=== PATIENT | female | born 1955 | race Caucasian/White ===

== ENCOUNTER → 2016-09-03 | Outpatient (CLI) | payer BC ==
[~2016-09-03] MED LIST: CLONAZEPAM 0.50.5 M1 PO; HYDROCODONE-AP1 EAC6 PO; KLOR-CON 1010 MEQ PO; LEVOTHYROXIN0.025 MG PO; MIRAPEX 0.250.25 M1 PO; MOBIC15 MG PO; RESTASIS1 EACH OPHTHALMIC; SEROQUEL 25 MG25 M1 PO; WELLBUTRIN 100100 MG PO; [UNRECOGNIZED DRUG - OTHER]; [UNRECOGNIZED DRUG - OTHER]; [UNRECOGNIZED DRUG - OTHER]
[2016-09-03 16:08] LABS: HEMATOCRIT 38.9 % (37.0-47.0); MCHC 33.3 g/dL (28.0-37.0); MCV 90.2 fL (80.0-100.0); RBC 4.32 mil/uL (4.20-5.00); WBC 10.2 thou/uL (4.0-11.0)
[2016-09-03 16:36] LABS: ALBUMIN 3.3 g/dL (3.4-5.0); CALCIUM 8.7 mg/dL (8.5-10.1); POTASSIUM 4.2 mmol/L (3.5-5.1); TOTAL BILIRUBIN 0.3 mg/dL (<0.1-1.0)
[2016-09-03 17:56] VITALS: BP 127/62
== END ==
LOC: OPONC 14:26
PROVIDERS: Specialist
DX: A49.01 Methicillin susceptible Staphylococcus aureus infection, unspecified site (principal); L97.521 Non-pressure chronic ulcer of other part of left foot limited to breakdown of skin
CPT/HCPCS: 27001; 95113

== ENCOUNTER → 2016-09-20 | Outpatient (CLI) | payer BC | LOC: HYPER | DX: E11.621 Type 2 diabetes mellitus with foot ulcer (principal); L97.522 Non-pressure chronic ulcer of other part of left foot with fat layer exposed; E66.09 Other obesity due to excess calories; E11.21 Type 2 diabetes mellitus with diabetic nephropathy; J45.22 Mild intermittent asthma with status asthmaticus; E03.9 Hypothyroidism, unspecified; M19.90 Unspecified osteoarthritis, unspecified site; K21.9 Gastro-esophageal reflux disease without esophagitis; F06.31 Mood disorder due to known physiological condition with depressive features; Z87.891 Personal history of nicotine dependence; Z72.89 Other problems related to lifestyle; Z68.37 Body mass index [BMI] 37.0-37.9, adult ==

== ENCOUNTER → 2016-09-30 | Outpatient (CLI) | payer BC | LOC: HYPER 07:20 | DX: E11.622 Type 2 diabetes mellitus with other skin ulcer (principal); L97.522 Non-pressure chronic ulcer of other part of left foot with fat layer exposed; E11.21 Type 2 diabetes mellitus with diabetic nephropathy; E66.09 Other obesity due to excess calories; Z68.37 Body mass index [BMI] 37.0-37.9, adult; J45.22 Mild intermittent asthma with status asthmaticus; E03.9 Hypothyroidism, unspecified; G25.81 Restless legs syndrome; F06.31 Mood disorder due to known physiological condition with depressive features; M19.90 Unspecified osteoarthritis, unspecified site; K21.9 Gastro-esophageal reflux disease without esophagitis; Z87.891 Personal history of nicotine dependence; Z72.89 Other problems related to lifestyle ==

== ENCOUNTER → 2016-10-05 | Outpatient (CLI) | payer BC ==
[2016-10-05 14:14] LABS: HEMATOCRIT 36.4 % (37.0-47.0); MCH 29.4 pg (26.0-34.0); MCHC 32.9 g/dL (28.0-37.0); MCV 89.5 fL (80.0-100.0); RBC 4.07 mil/uL (4.20-5.00); RDW 14.5 % (10.5-14.5); WBC 7.1 thou/uL (4.0-11.0)
[2016-10-05 14:25] LABS: CREATININE 1.3 mg/dL (0.6-1.0); POTASSIUM 4.1 mmol/L (3.5-5.1)
[2016-10-05 14:30] LABS: ALBUMIN 3.2 g/dL (3.4-5.0); TOTAL BILIRUBIN 0.2 mg/dL (<0.1-1.0); TOTAL PROTEIN 6.9 g/dL (6.4-8.2)
== END ==
LOC: OPONC 11:38
PROVIDERS: Specialist
DX: L97.521 Non-pressure chronic ulcer of other part of left foot limited to breakdown of skin (principal); E11.69 Type 2 diabetes mellitus with other specified complication; A49.01 Methicillin susceptible Staphylococcus aureus infection, unspecified site
CPT/HCPCS: 91016

== ENCOUNTER → 2016-10-07 | Outpatient (CLI) | payer BC | LOC: HYPER 07:12 | DX: E11.621 Type 2 diabetes mellitus with foot ulcer (principal); L97.522 Non-pressure chronic ulcer of other part of left foot with fat layer exposed; E66.09 Other obesity due to excess calories; E11.21 Type 2 diabetes mellitus with diabetic nephropathy; J45.22 Mild intermittent asthma with status asthmaticus; E03.9 Hypothyroidism, unspecified; M19.90 Unspecified osteoarthritis, unspecified site; K21.9 Gastro-esophageal reflux disease without esophagitis; F06.31 Mood disorder due to known physiological condition with depressive features; Z87.891 Personal history of nicotine dependence; Z72.89 Other problems related to lifestyle; Z68.37 Body mass index [BMI] 37.0-37.9, adult ==

== ENCOUNTER → 2016-10-09 | Outpatient (CLI) | payer BC | LOC: OPONC 12:09 | DX: Z45.2 Encounter for adjustment and management of vascular access device (principal) ==

== ENCOUNTER → 2016-10-14 | Outpatient (CLI) | payer BC | LOC: HYPER 06:59 | DX: E11.621 Type 2 diabetes mellitus with foot ulcer (principal); L97.522 Non-pressure chronic ulcer of other part of left foot with fat layer exposed; E66.09 Other obesity due to excess calories; E11.21 Type 2 diabetes mellitus with diabetic nephropathy; J45.22 Mild intermittent asthma with status asthmaticus; E03.9 Hypothyroidism, unspecified; J45.909 Unspecified asthma, uncomplicated; M19.90 Unspecified osteoarthritis, unspecified site; K21.9 Gastro-esophageal reflux disease without esophagitis; F06.31 Mood disorder due to known physiological condition with depressive features; Z87.891 Personal history of nicotine dependence; Z72.89 Other problems related to lifestyle; Z68.37 Body mass index [BMI] 37.0-37.9, adult ==

== ENCOUNTER → 2016-11-01 | Outpatient (CLI) | payer BC | LOC: HYPER 10-21 09:26 | DX: E11.621 Type 2 diabetes mellitus with foot ulcer (principal); L97.522 Non-pressure chronic ulcer of other part of left foot with fat layer exposed; E66.09 Other obesity due to excess calories; E11.21 Type 2 diabetes mellitus with diabetic nephropathy; J45.22 Mild intermittent asthma with status asthmaticus; E03.9 Hypothyroidism, unspecified; G25.81 Restless legs syndrome; M19.90 Unspecified osteoarthritis, unspecified site; K21.9 Gastro-esophageal reflux disease without esophagitis; F32.9 Major depressive disorder, single episode, unspecified; F06.31 Mood disorder due to known physiological condition with depressive features; Z87.891 Personal history of nicotine dependence; Z72.89 Other problems related to lifestyle; Z68.37 Body mass index [BMI] 37.0-37.9, adult ==

== ENCOUNTER → 2016-11-18 | Outpatient (CLI) | payer BC | LOC: HYPER 07:11 | DX: E11.621 Type 2 diabetes mellitus with foot ulcer (principal); L97.522 Non-pressure chronic ulcer of other part of left foot with fat layer exposed; E66.09 Other obesity due to excess calories; F06.31 Mood disorder due to known physiological condition with depressive features; J45.22 Mild intermittent asthma with status asthmaticus; E03.9 Hypothyroidism, unspecified; G25.81 Restless legs syndrome; E11.21 Type 2 diabetes mellitus with diabetic nephropathy; M19.90 Unspecified osteoarthritis, unspecified site; K21.9 Gastro-esophageal reflux disease without esophagitis; Z87.891 Personal history of nicotine dependence; Z68.37 Body mass index [BMI] 37.0-37.9, adult; Z72.89 Other problems related to lifestyle ==

== ENCOUNTER → 2016-12-01 | Outpatient (CLI) | payer BC | LOC: HYPER 06:51 | DX: E11.621 Type 2 diabetes mellitus with foot ulcer (principal); L97.522 Non-pressure chronic ulcer of other part of left foot with fat layer exposed; E66.09 Other obesity due to excess calories; E11.21 Type 2 diabetes mellitus with diabetic nephropathy; J45.22 Mild intermittent asthma with status asthmaticus; E03.9 Hypothyroidism, unspecified; M19.90 Unspecified osteoarthritis, unspecified site; K21.9 Gastro-esophageal reflux disease without esophagitis; F06.31 Mood disorder due to known physiological condition with depressive features; Z87.891 Personal history of nicotine dependence; Z68.37 Body mass index [BMI] 37.0-37.9, adult; Z72.89 Other problems related to lifestyle ==

== ENCOUNTER → 2016-12-17 | Outpatient (CLI) | payer BC | LOC: HYPER 08:14 | DX: L97.522 Non-pressure chronic ulcer of other part of left foot with fat layer exposed (principal); E11.21 Type 2 diabetes mellitus with diabetic nephropathy; J45.22 Mild intermittent asthma with status asthmaticus; E03.9 Hypothyroidism, unspecified; E66.09 Other obesity due to excess calories; M19.90 Unspecified osteoarthritis, unspecified site; K21.9 Gastro-esophageal reflux disease without esophagitis; F06.31 Mood disorder due to known physiological condition with depressive features; Z87.891 Personal history of nicotine dependence; Z68.37 Body mass index [BMI] 37.0-37.9, adult; Z72.89 Other problems related to lifestyle ==

== ENCOUNTER → 2017-01-14 | Outpatient (CLI) | payer BC | LOC: HYPER 08:03 | DX: E11.621 Type 2 diabetes mellitus with foot ulcer (principal); L97.522 Non-pressure chronic ulcer of other part of left foot with fat layer exposed; E66.09 Other obesity due to excess calories; E11.21 Type 2 diabetes mellitus with diabetic nephropathy; J45.22 Mild intermittent asthma with status asthmaticus; E03.9 Hypothyroidism, unspecified; M19.90 Unspecified osteoarthritis, unspecified site; K21.9 Gastro-esophageal reflux disease without esophagitis; F06.31 Mood disorder due to known physiological condition with depressive features; Z87.891 Personal history of nicotine dependence; Z72.89 Other problems related to lifestyle; Z68.37 Body mass index [BMI] 37.0-37.9, adult ==

== ENCOUNTER 2017-02-01 07:08 | Inpatient (IN) | payer BC ==
[~2017-02-01] VITALS: Ht 172.7 cm; Wt 122.2 kg
--- NOTE | ~2017-02-01 | HC ---
[facility] [place] [address] CONSULTATION Name: TA SALDANA Room #: 431-P ADM IN M.R.#: [id number] Admission: 02/01/17 Attend Phys: Antonio Mccann MD Discharge: Date of : 57 Report #: [id number] THIS REPORT FOR: //name// CC: WU Mccann DATE OF SERVICE: 02/03/2017 WOUND CARE PROGRESS NOTE PERSONAL PHYSICIAN: None on staff. CHIEF COMPLAINT: Left leg cellulitis. HISTORY OF PRESENT ILLNESS: This is a 61-year-old white female who I saw in clinic 2 days ago and admitted to the hospital for cellulitis of the left lower extremity, status post operative removal of hardware approximately 10 days ago. The patient now is on 48 hours of IV antibiotics and has been doing quite well. The patient states her foot feels much better and she herself feels better as well. The patient states her swelling has gone down markedly because she has been keeping her legs elevated. Nursing staff have no major concerns at this time. CURRENT MEDICATIONS: Reviewed. They do include IV antibiotics. DRUG ALLERGIES: Multiple. I have reviewed patient's list. REVIEW OF SYSTEMS: CONSTITUTIONAL: The patient denies fevers or chills. NEUROLOGIC: The patient complains of generalized weakness, but no isolated weakness to arms or legs. GASTROINTESTINAL: The patient denies nausea, vomiting or diarrhea. CARDIAC: The patient also denies chest pain or shortness of breath. EXTREMITIES: The patient does complain of mild swelling in her lower extremities; however, this is much improved. PHYSICAL EXAMINATION: VITAL SIGNS: Stable. The patient is afebrile. GENERAL: This is an alert and oriented times 3, very pleasant white female who is in no acute distress. HEENT: Normocephalic and atraumatic. Mucous membranes are somewhat dry. Pupils are round. Sclerae white. LUNGS: Show nonlabored respirations. ABDOMEN: Soft, obese and otherwise nontender. EXTREMITIES: Evaluation of left lower extremity reveals markedly diminished swelling approximately 1+. There is decreased erythema and warmth to the left [facility] [address] [place] [address] CONSULTATION Name: TA SALDANA Room #: 431-P ADM IN M.R.#: [id number] Admission: 02/01/17 Attend Phys: Antonio Mccann MD Discharge: Date of : 57 Report #: [id number] lower extremity. The bilateral foot wounds have been just freshly dressed and clean, dry and intact. I reviewed the patient's pictures, which showed intact sutures, but from the previous surgery, with markedly diminished erythema. NEUROLOGIC: Cranial nerves 2-12 are grossly intact. Motor and sensory are grossly intact. DIAGNOSTIC DATA: X-rays results: MRI was reviewed, which showed Charcot arthropathy changes, but no acute osteomyelitis or abscess. WOUND CARE COURSE: I spoke at length with the patient. I stated at this point in time we will continue the IV antibiotics per infectious disease recommendations, and then plan on getting the patient either home with home health or possibly even to a skilled facility for a short term of rehabilitation for strengthening. She is agreeable to either one. IMPRESSION: 1. Left lower extremity cellulitis, status post left foot surgical procedure. 2. Status post right foot surgical explantation of hardware. 3. Generalized debility. PLAN: At this time once again we will continue with the IV antibiotics, local wound care with Optifoam Ag covering the incisional sites covered with Kerlix and Mir wrap. The patient to elevate her legs as much as possible. Continue to maximize protein supplementation for healing. Once again, patient is considering skilled facility for rehabilitation upon discharge. We will continue to follow the patient. By: 21 0427 Antonio Mccann MD /nt
--- NOTE | ~2017-02-01 | HC ---
[facility] [place] [address] [place] [address] CONSULTATION Name: TA SALDANA Room #: 431-P ADM IN M.R.#: [id number] Admission: 02/01/17 Attend Phys: Antonio Mccann MD Discharge: Date of : 57 Report #: [id number] THIS REPORT FOR: //name// CC: WU Mccann DATE OF SERVICE: 02/02/2017 CHIEF COMPLAINT: Foot infection. HISTORY OF PRESENT ILLNESS: This is a 61-year-old female patient with history of diabetes and peripheral neuropathy, has a history of methicillin-susceptible Staph aureus. She had a prominence of the bone on the lateral part of her foot and has undergone surgical intervention to remove the bony prominence. She also had previous hardware removed from her first metatarsal reconstructive surgeries. She developed pain, swelling and redness and has been admitted for further evaluation and treatment. PAST MEDICAL HISTORY: Positive for history of diabetes mellitus, currently not requiring medication; peripheral neuropathy; history of Staph infection as well as ongoing peripheral edema. ALLERGIES: INCLUDE ADHESIVE AND OXYCODONE. CURRENT MEDICATIONS: Include Synthroid, clonazepam, Seroquel, Wellbutrin, Mobic, Mirapex. SOCIAL HISTORY: Previous smoker, negative for current alcohol use. REVIEW OF SYSTEMS: CONSTITUTIONAL: Denies fever, chills, weight loss. NEUROLOGICAL: The patient denies focal weakness. ENT: The patient denies earache, nasal drainage, sore throat. CARDIOVASCULAR: The patient denies chest pain, palpitations, diaphoresis. PULMONARY: The patient denies cough or shortness of breath. GASTROINTESTINAL: The patient denies nausea, vomiting, diarrhea or abdominal pain. ORTHOPEDIC: The patient has pain, but does complain of some swelling and redness to her left foot. ENDOCRINE: The patient denies heat or cold intolerance, polydipsia, polyphagia and polyuria. Other systems in a 12-point review of systems are negative. PHYSICAL EXAMINATION: VITAL SIGNS: Include pulse 73, respiratory rate 18, blood pressure 135/88, temperature 98.4. GENERAL: This is a chronically ill-appearing female patient who appears to be [address] [address] CONSULTATION Name: TA SALDANA Room #: 431-P ADM IN M.R.#: [id number] Admission: 02/01/17 Attend Phys: Antonio Mccann MD Discharge: Date of : 57 Report #: [id number] in no distress. HEENT: Head is normocephalic. Nose and throat are clear. NECK: Supple. LUNGS: Clear. HEART: Regular. ABDOMEN: Soft. Bowel sounds present. EXTREMITIES: Examination of the left foot demonstrates surgical incisions both along the lateral portion of the foot as well as the dorsal aspect of the first ray. There is mild erythema present. There is some bruising on the lateral portion of the left foot as well. LABORATORY DATA: Include sodium 138, potassium 3.7, chloride 101, CO2 33, BUN 26, creatinine 1.4, glucose 116, alk phos 90. White blood cell count 8.3; hemoglobin 11.3; platelet count 226,000. Sed rate moderately elevated at 70. CLINICAL IMPRESSION: 1. Surgical site infection of the left foot. 2. Diabetes mellitus. 3. Peripheral edema. RECOMMENDATIONS: At this point in time, the patient is started on intravenous antibiotic therapy. We will recommend dry dressings to the incision lines with silver alginate and gauze. We will check an MRI. We will review the findings and condition with Dr. Mccann who has been following her on an outpatient basis. I appreciate being asked to see her in consultation. <ELECTRONICALLY SIGNED> By: Michael De Santiago MD 02/03/17 1350 [id number] Michael De Santiago MD /nt
[~2017-02-01 07:08] MED LIST changes: +ALPRAZOLAM PO; -HYDROCODONE-AP1 EAC6 PO; +HYDROCODONE-AP1 EACH PO; -LEVOTHYROXIN0.025 MG PO; +SYNTHROID137 MCG PO; -[UNRECOGNIZED DRUG - OTHER]; -[UNRECOGNIZED DRUG - OTHER]; +[UNRECOGNIZED DRUG - OTHER] PO
[2017-02-01 17:15] VITALS: BP 154/82
[2017-02-01 18:40] LABS: ABSOLUTE NEUTROPHILS 5.3 thou/uL (1.4-8.2); BASOPHILS 0.9 % (0.0-2.0); EOSINOPHILS 2.7 % (0.0-3.0); HEMATOCRIT 33.8 % (37.0-47.0); HEMOGLOBIN 11.3 gm/dL (12.0-15.0); LYMPHOCYTES 21.1 % (24.0-44.0); MCH 29.2 pg (26.0-34.0); MCHC 33.4 g/dL (28.0-37.0); MCV 87.3 fL (80.0-100.0); MONOCYTES 10.7 % (1.0-8.0); PLATELET COUNT 226 thou/uL (150-400); POLYS 64.6 % (36.0-66.0); RBC 3.87 mil/uL (4.20-5.00); RDW 15.1 % (10.5-14.5); WBC 8.3 thou/uL (4.0-11.0)
[2017-02-01 18:41] LABS: MANUAL DIFF NO
[2017-02-01 18:48] LABS: CALCIUM 9.5 mg/dL (8.5-10.1); CREATININE 1.4 mg/dL (0.6-1.0); POTASSIUM 3.7 mmol/L (3.5-5.1)
[2017-02-01 18:55] LABS: ALBUMIN 3.2 g/dL (3.4-5.0); TOTAL BILIRUBIN 0.4 mg/dL (<0.1-1.0); TOTAL PROTEIN 7.1 g/dL (6.4-8.2)
[2017-02-01 20:00] VITALS: BP 119/58
[2017-02-01 23:10] LABS: URINE BILIRUBIN NEGATIVE (Negative); URINE BLOOD NEGATIVE (Negative); URINE COLOR YELLOW; URINE GLUCOSE-RANDOM* NEGATIVE (Negative); URINE KETONES NEGATIVE (Negative); URINE NITRITE NEGATIVE (Negative); URINE PROTEIN (DIPSTICK) NEGATIVE (Negative); URINE SPECIFIC GRAVITY <= 1.005 (1.003-1.035)
[2017-02-02 04:30] VITALS: BP 120/68; BP 146/95
[2017-02-02] MEDS ORDERED: SEROQUEL 50 MG50 MG PO (14:28)
[2017-02-02] MEDS ORDERED: SINGULAIR 10 MG10 M1 PO (14:30)
[2017-02-02] MEDS ORDERED: MIRAPEX 0.250.25 M1 PO (14:30)
[2017-02-02] MEDS ORDERED: LASIX 80 MG TAB80 MG PO (14:31)
[2017-02-02] MEDS ORDERED: PROZAC20 MG PO (14:32)
[2017-02-02] MEDS ORDERED: NEURONTIN600 MG PO (14:33)
[2017-02-02] MEDS ORDERED: CYCLOBENZAPRINE5 MG PO (14:35)
[2017-02-02] MEDS ORDERED: ARIPIPRAZOLE10 MG PO (14:37)
[2017-02-02 15:18] VITALS: BP 105/51
[2017-02-02 20:18] VITALS: BP 135/88
[2017-02-03 03:36] VITALS: BP 95/50
[2017-02-03 06:57] VITALS: BP 112/61
[2017-02-03 07:20] LABS: ABSOLUTE NEUTROPHILS 3.3 thou/uL (1.4-8.2); EOSINOPHILS 4.5 % (0.0-3.0); HEMATOCRIT 29.9 % (37.0-47.0); HEMOGLOBIN 10.1 gm/dL (12.0-15.0); MCH 29.5 pg (26.0-34.0); MCHC 33.6 g/dL (28.0-37.0); MCV 87.7 fL (80.0-100.0); MONOCYTES 8.6 % (1.0-8.0); PLATELET COUNT 203 thou/uL (150-400); POLYS 54.9 % (36.0-66.0); RBC 3.41 mil/uL (4.20-5.00); RDW 15.3 % (10.5-14.5)
[2017-02-03 07:21] LABS: MANUAL DIFF NO
[2017-02-03 07:43] LABS: CALCIUM 8.8 mg/dL (8.5-10.1)
[2017-02-03 16:00] VITALS: BP 102/55
[2017-02-03 20:27] VITALS: BP 140/78
[2017-02-03 20:38] VITALS: BP 116/75
[2017-02-04 07:52] VITALS: BP 133/71
[2017-02-04 15:11] VITALS: BP 133/71
[2017-02-04 17:00] VITALS: BP 117/66
[2017-02-04 19:21] VITALS: BP 129/71
[2017-02-05] VITALS: BP 116/63
[2017-02-05 03:47] VITALS: BP 87/50
[2017-02-05 06:01] LABS: ABSOLUTE NEUTROPHILS 4.3 thou/uL (1.4-8.2); BASOPHILS 1.2 % (0.0-2.0); EOSINOPHILS 3.5 % (0.0-3.0); HEMOGLOBIN 10.2 gm/dL (12.0-15.0); LYMPHOCYTES 28.9 % (24.0-44.0); MCHC 32.9 g/dL (28.0-37.0); PLATELET COUNT 211 thou/uL (150-400); POLYS 58.4 % (36.0-66.0); RBC 3.52 mil/uL (4.20-5.00); RDW 14.3 % (10.5-14.5); WBC 7.4 thou/uL (4.0-11.0)
[2017-02-05 06:02] LABS: MANUAL DIFF NO
[2017-02-05 06:09] LABS: CALCIUM 8.8 mg/dL (8.5-10.1); CREATININE 0.9 mg/dL (0.6-1.0); POTASSIUM 4.4 mmol/L (3.5-5.1)
[2017-02-05 08:05] VITALS: BP 130/54
[2017-02-05] MEDS ORDERED: HOSPITAL BED (11:28)
[2017-02-05] MEDS ORDERED: TAMIFLU75 MG PO (11:28)
[2017-02-05 15:00] VITALS: BP 133/71
== END 2017-02-05 15:36 | disposition home or self-care (01) | DRG 863 ==
LOC: HYPER 07:08 → 4E 17:05
PROVIDERS: Family Medicine; Nurse Practitioner
DX: T81.4XXA Infection following a procedure, initial encounter (principal); L03.116 Cellulitis of left lower limb; Y83.8 Other surgical procedures as the cause of abnormal reaction of the patient, or of later complication, without mention of misadventure at the time of the procedure; E11.42 Type 2 diabetes mellitus with diabetic polyneuropathy; K21.9 Gastro-esophageal reflux disease without esophagitis; E03.9 Hypothyroidism, unspecified; M19.90 Unspecified osteoarthritis, unspecified site; Y92.89 Other specified places as the place of occurrence of the external cause; Z79.899 Other long term (current) drug therapy; Z87.891 Personal history of nicotine dependence; Z98.84 Bariatric surgery status; Z88.8 Allergy status to other drugs, medicaments and biological substances; Z82.49 Family history of ischemic heart disease and other diseases of the circulatory system; Z83.3 Family history of diabetes mellitus
CPT/HCPCS: 10783

== ENCOUNTER → 2017-02-22 | Outpatient (CLI) | payer BC ==
[~2017-02-22] MED LIST changes: +ARIPIPRAZOLE10 MG PO; +CYCLOBENZAPRINE5 MG PO; +GRALISE600 MG PO; +HOSPITAL BED; +LASIX 40 MG TAB40 M2 PO; +LASIX 80 MG TAB80 MG PO; +NEURONTIN600 MG PO; +PRILOSEC 20 MG20 MG PO; +PROZAC20 MG PO; +SEROQUEL 50 MG50 MG PO; +SINGULAIR 10 MG10 M1 PO; +TAMIFLU75 MG PO; +XANAX1 MG PO
== END ==
LOC: HYPER 06:47
DX: T81.31XD Disruption of external operation (surgical) wound, not elsewhere classified, subsequent encounter (principal); E11.621 Type 2 diabetes mellitus with foot ulcer; L97.522 Non-pressure chronic ulcer of other part of left foot with fat layer exposed; E66.09 Other obesity due to excess calories; E11.21 Type 2 diabetes mellitus with diabetic nephropathy; F06.31 Mood disorder due to known physiological condition with depressive features; J45.22 Mild intermittent asthma with status asthmaticus; E03.9 Hypothyroidism, unspecified; K21.9 Gastro-esophageal reflux disease without esophagitis; M19.90 Unspecified osteoarthritis, unspecified site; Z87.891 Personal history of nicotine dependence; Z72.89 Other problems related to lifestyle

== ENCOUNTER → 2017-03-01 | Outpatient (CLI) | payer BC | LOC: HYPER 06:42 | DX: T81.31XD Disruption of external operation (surgical) wound, not elsewhere classified, subsequent encounter (principal); E11.621 Type 2 diabetes mellitus with foot ulcer; L97.522 Non-pressure chronic ulcer of other part of left foot with fat layer exposed; E66.09 Other obesity due to excess calories; E11.21 Type 2 diabetes mellitus with diabetic nephropathy; F06.31 Mood disorder due to known physiological condition with depressive features; J45.22 Mild intermittent asthma with status asthmaticus; E03.9 Hypothyroidism, unspecified; G25.81 Restless legs syndrome; F32.9 Major depressive disorder, single episode, unspecified; M19.90 Unspecified osteoarthritis, unspecified site; Z87.891 Personal history of nicotine dependence; Z72.89 Other problems related to lifestyle; Y83.8 Other surgical procedures as the cause of abnormal reaction of the patient, or of later complication, without mention of misadventure at the time of the procedure ==

== ENCOUNTER → 2017-03-08 | Outpatient (CLI) | payer BC | LOC: HYPER 07:14 | DX: T81.31XD Disruption of external operation (surgical) wound, not elsewhere classified, subsequent encounter (principal); E11.621 Type 2 diabetes mellitus with foot ulcer; L97.522 Non-pressure chronic ulcer of other part of left foot with fat layer exposed; E66.09 Other obesity due to excess calories; E11.21 Type 2 diabetes mellitus with diabetic nephropathy; J45.22 Mild intermittent asthma with status asthmaticus; E03.9 Hypothyroidism, unspecified; M19.90 Unspecified osteoarthritis, unspecified site; K21.9 Gastro-esophageal reflux disease without esophagitis; F06.31 Mood disorder due to known physiological condition with depressive features; Z87.891 Personal history of nicotine dependence; Z72.89 Other problems related to lifestyle; Z68.37 Body mass index [BMI] 37.0-37.9, adult; Y83.8 Other surgical procedures as the cause of abnormal reaction of the patient, or of later complication, without mention of misadventure at the time of the procedure ==

== ENCOUNTER → 2017-03-28 | Outpatient (CLI) | payer BC ==
[~2017-03-28] VITALS: Ht 172.7 cm; Wt 117.9 kg
[~2017-03-28] MED LIST changes: +ABILIFY10 MG PO; +CONCERTA36 M1 PO; +MIRAPEX1 MG PO; +QUETIAPINE FUM100 MG PO; -SEROQUEL 50 MG50 MG PO; +TRILEPTAL150 MG PO; +ZANAFLEX4 MG PO; +ZYRTEC10 M5 PO
--- NOTE | ~2017-03-28 | HPC ---
[facility] [address] [place] [address] PAIN MANAGEMENT CONSULTATION Name: TA SALDANA Lizandro Room #: REG NATALIA Dolan#: [id number] Admission: 03/28/17 Attend Phys: Tray Melara DO Discharge: Date of : 57 Report #: [id number] THIS REPORT FOR: //name// CC: WU Melara DATE OF SERVICE: 03/28/2017 HISTORY OF PRESENT ILLNESS: The patient is an unfortunate 61-year-old female who is seen in consultation at the request of Dr. Mccann for assistance with management of chronic pain syndrome. The patient notes that starting in 04/2015, she had foot surgery. She has subsequently had 10 surgeries on both feet. Last surgery was on the left foot, felt like an osteotomy with poor wound healing. She has ongoing neuropathic pain, left greater than right foot; chronic lower extremity swelling; had had a persistent nonhealing lesion on the left side of her foot. She is following with Dr. Mccann. At her last surgery, I believe, had most of the hardware removed. Currently, she takes hydrocodone p.r.n. for pain; appears that she takes 2-4 a day. Titrated up to 1800 mg of Gralise in the evening with some efficacy. She has had multiple steroid injections. It is hard to partial these out, but it sounds like she had bilateral hip joint injections, last in January. She has had knee injections. She has had lumbar epidural injections (question etiology). Currently, she is complaining of primarily left greater than right foot pain, which she describes as steady, sharp and stabbing; rates it as an 8 to "10+" on a 0-10 visual analog scale. REVIEW OF SYSTEMS: Complete review of systems is attached to chart and gone over with the patient. He is , does not smoke or drink alcohol to excess. History of glucose intolerance in the past. She is on no medications. Hemoglobin A1c went to 6.5. History of reactive airway disease, uses Singulair now on a p.r.n. basis. Hypothyroid for which she uses levothyroxine for years. Gastroesophageal reflux for which she uses [id number] Prilosec. Chronic anxiety and depression, multiple psychiatric comorbidities for which she takes Prozac, Wellbutrin, Abilify, high dose benzodiazepines including Klonopin 2 mg at bedtime and Xanax 2 mg at bedtime along with Seroquel. These have all prescribed by her psychiatrist. Uses Mirapex for restless legs syndrome. The patient has been retired for 18 years. She is quite frustrated and depressed that she has been essentially wheelchair bound for the past [address] [address] PAIN MANAGEMENT CONSULTATION Name: LESTA A Room #: REG CL Kelsi#: [id number] Admission: 03/28/17 Attend Phys: Tray Melara DO Discharge: Date of : 57 Report #: [id number] This is not unexpected. Her pain impact score is quite high, averaging 54/70. PHYSICAL EXAMINATION: GENERAL: Reveals a 5 feet 6 inches, 260-pound female, BMI is elevated at 39.5 kilograms per meter squared. VITAL SIGNS: Blood pressure is 127/83, pulse 76, respirations 16. NEUROLOGIC: Cranial nerves 2-12 are grossly intact. Pupils equal and reactive to light and accommodation. Extraocular muscles are intact. She is alert and oriented to person, place and time, judged to be a reasonable historian. Upper extremity strength is symmetric. MUSCULOSKELETAL: Significantly endomorphic build. She has +1 to 2 pretibial edema on the right, 2-3 on the left. She does have a small eschar on the lateral aspect of the left foot which does appear to be healing better, but the entire foot does appear to be quite turgid. Hyperpathia, allodynia is noted. I cannot detect peripheral pulses, but she does have capillary eva. Right lower extremity strength is diminished about 3/5 to hip flexion, lower extremity extension is 4/5. Right leg is a little stronger at 4/5 as well. Patellar and Achilles reflexes are diminished, but symmetric. DIAGNOSTIC STUDIES: There are no recent diagnostic studies available for evaluation at this time. I did notice from the patient's last hospitalization 02/01 through , she does have compromised renal function, BUN and creatinine are 41 and 1.1 respectively yielding a eGFR of 51. Last blood study was 02/11/2017. ASSESSMENT: Neuropathic pain, right lower extremity; history of cellulitis, left foot with a new pain, right thigh. The patient noted that the right thigh pain started when she arose about a week ago, acute onset she felt and heard a "snap." She has palpable tenderness in the proximal aspect of the right thigh somewhat lateral of midline. However, she has a reasonable lower extremity extension and flexion. She complains of pain when she arises or sits. RECOMMENDATION: 1. MRI of the right hip and thigh. Diagnosis is partial quadriceps tear. 2. Neuropathic pain, left lower extremity, on appropriate current medication including Gralise 1800 mg at bedtime. Consider adding a sodium channel membrane stabilizing agent (load as Trileptal 150 mg at bedtime) to see if we get some synergy with the calcium channel membrane stabilizing agent (Gralise). Continue hydrocodone, this is an appropriate dose. If pain becomes more problematic and/or at some point, we will come to conclusion that she simply has a Charcot foot and has compromised function, we may consider rotating to a long-acting low dose opiate (buprenorphine transdermal?). The patient states she had trialed fentanyl in the past at 25 mcg with no efficacy. Again, takes hydrocodone 10/325 2-4 a day with nominal efficacy. Another consideration may be methadone low dose 2.5-5 mg t.i.d. Good opiate analgesic reasonably cost effective and [facility] [address] [place] [address] PAIN MANAGEMENT CONSULTATION Name: TA SALDANA Room #: REG [facility] Kelsi#: [id number] Admission: 03/28/17 Attend Phys: Tray Melara DO Discharge: Date of : 57 Report #: [id number] helpful with neuropathic pain from the NMDA receptor activity. Thanks for allowing me to participate in the patient's care. We will see her next month after MRI of the right thigh and hip. We will evaluate efficacy of addition of Trileptal at that point. <ELECTRONICALLY SIGNED> By: Tray Melara DO 03/30/17 0808 [id number] Tray Melara, DO /nt
[2017-03-28 13:27] VITALS: BP 127/83
== END ==
LOC: PAIN 07:15
DX: G89.4 Chronic pain syndrome (principal); M79.2 Neuralgia and neuritis, unspecified; Z87.2 Personal history of diseases of the skin and subcutaneous tissue

== ENCOUNTER → 2017-05-04 | Outpatient (CLI) | payer BC | LOC: HYPER 04-27 06:51 | DX: T81.31XD Disruption of external operation (surgical) wound, not elsewhere classified, subsequent encounter (principal); E11.621 Type 2 diabetes mellitus with foot ulcer; L97.522 Non-pressure chronic ulcer of other part of left foot with fat layer exposed; E11.21 Type 2 diabetes mellitus with diabetic nephropathy; J45.22 Mild intermittent asthma with status asthmaticus; E03.9 Hypothyroidism, unspecified; G25.81 Restless legs syndrome; E66.9 Obesity, unspecified; Z68.37 Body mass index [BMI] 37.0-37.9, adult; K21.9 Gastro-esophageal reflux disease without esophagitis; M19.90 Unspecified osteoarthritis, unspecified site; Z87.891 Personal history of nicotine dependence; Z72.89 Other problems related to lifestyle; Y83.8 Other surgical procedures as the cause of abnormal reaction of the patient, or of later complication, without mention of misadventure at the time of the procedure ==